=== PATIENT | female | born 1970 | race Caucasian/White ===

== ENCOUNTER 2017-01-10 05:23 | Emergency (ER) | payer BC ==
[2017-01-10 05:28] VITALS: BP 119/80
[2017-01-10] MEDS ORDERED: Lidocaine 1% 20 ML MDV INJECT ONE (05:46)
[2017-01-10] MEDS ORDERED: cefTRIAXone 1 GM Vial IM ONE (05:46)
[2017-01-10] MEDS ORDERED: methylPREDNISolone Sodium Succinate 125 MG/2 ML SDV IM ONE (05:47)
[2017-01-10] MEDS ORDERED: Acetaminophen/HYDROcodone 325-5 MG Tab PO PRN (06:01)
--- NOTE | 2017-01-10 06:08 | EDM.PDOC ---
ED HPI GENERAL MEDICAL PROBLEM - General Chief Complaint: ENT Problem Stated Complaint: tooth abcess Time Seen by Provider: 01/10/17 05:43 Source of Information: Reports: Patient History Limitations: Reports: No Limitations - History of Present Illness INITIAL COMMENTS - FREE TEXT/NARRATIVE: Patient presents to ED with a 4 day history of swelling, redness and pain to her face near her ear. Believes associated with an abscess tooth. She states she has had this happen to her in the past but never this severe. Is having considerable difficulty opening and closing her mouth. Does admit to consuming "a lot of alcohol tonight" to be "brave enough to come to the ER". No fevers. Onset: Gradual Duration: Day(s): Location: Reports: Face Severity: Mild Improves with: Reports: Medication Associated Symptoms: Denies: Fever/Chills Treatments [employer]: Reports: Acetaminophen Left Tooth/Teeth Pain Score (Numeric/FACES): 2 - Related Data Allergies Allergy/AdvReac Type Severity Reaction Status Date / Time No Known Allergies Allergy Verified 01/10/17 05:24 Home Meds: Home Meds . [No Known Home Meds] 01/10/17 [History] Past Medical History HEENT History: Reports: Impaired Vision, Other (See Below) Other HEENT History: tooth abscess Cardiovascular History: Reports: Heart Murmur Gastrointestinal History: Reports: Other (See Below) Other Gastrointestinal History: appendicitis Musculoskeletal History: Reports: Arthritis Neurological History: Reports: Migraines - Past Surgical History HEENT Surgical History: Reports: Adenoidectomy, Myringotomy w Tube(s), Tonsillectomy Neurological Surgical History: Reports: Other (See Below) Other Neurological Surgeries/Procedures: spinal tap Social & Family History - Family History Family Medical History: Noncontributory - Tobacco Use Smoking Status *Q: Current Every Day Smoker Years of Tobacco use: 31 Packs/Tins Daily: 0.5 - Recreational Drug Use Recreational Drug Use: Yes Recreational Drug Type: Reports: Marijuana/Hashish Recreational Drug Use Frequency: Socially ED ROS GENERAL - Review of Systems Review Of Systems: See Below Constitutional: Denies: Fever, Chills HEENT: Reports: Other (tooth pain). Denies: Ear Discharge, Ear Pain, Nose Pain , Throat Pain, Throat Swelling, Vertigo Respiratory: Reports: No Symptoms Cardiovascular: Reports: No Symptoms Endocrine: Reports: No Symptoms GI/Abdominal: Reports: No Symptoms Skin: Reports: Erythema, Lesions Neurological: Reports: No Symptoms ED EXAM, SKIN/RASH Exam: See Below Exam Limited By: Intoxication General Appearance: Alert, WD/WN, No Apparent Distress Ears: Normal External Exam, Normal TMs Nose: Normal Inspection, Normal Mucosa, No Blood Throat/Mouth: Other (molar dental caries) Head: Facial Swelling, Facial Tenderness, Other (Large area of redness and swelling to left preauricular area. ) Neck: Normal Inspection, Supple, Non-Tender Respiratory/Chest: No Respiratory Distress, Lungs Clear, Normal Breath Sounds Cardiovascular: Regular Rate, Rhythm GI/Abdominal: Normal Bowel Sounds, Soft, Non-Tender Neurological: Alert, Oriented Psychiatric: Other (intoxicated) Skin: Erythema Associated features: Warmth, Tenderness, Wwelling ED SKIN PROCEDURES - I&D Skin Prep: Providone-Iodine (Betadine) Local Anesthesia: Lidocaine: 1% Plain Local Anesthetic Volume: 1cc Area Incised With: 11 Blade Drainage: Purulent, Moderate Amount Probed to Break Up Loculations: No Complications: No Progress/Comments: Culture obtained Course - Vital Signs Last Recorded V/S: Last Vital Signs Temp 96.1 F 01/10/17 05:24 Pulse 70 01/10/17 05:24 Resp 16 01/10/17 05:24 BP 119/80 01/10/17 05:24 Pulse Ox 100 01/10/17 05:24 - Orders/Labs/Meds Orders: Active Orders 24 hr Category Date Time Status CULTURE WOUND [RM] Stat Lab 01/10/17 06:00 Received Meds: Medications Discontinued Medications Generic Name Dose Route Start Last Admin Trade Name [place] PRN Reason Stop Dose Admin Hydrocodone Bitart/Acetaminophen 1 - 2 tab 01/10/17 06:01 01/10/17 06:09 [place] 325-5 Mg PO 2 tab Q4H PRN Administration Pain Ceftriaxone Sodium 1 gm 01/10/17 05:46 01/10/17 05:54 Rocephin IM 01/10/17 05:47 1 gm ONETIME ONE Administration Lidocaine HCl 20 ml 01/10/17 05:46 01/10/17 05:54 Xylocaine 1% INJECT 01/10/17 05:47 20 ml ONETIME ONE Administration Methylprednisolone Sodium Succinate 125 mg 01/10/17 05:47 01/10/17 05:54 Solu-Medrol IM 01/10/17 05:48 125 mg NOW ONE Administration Departure - Departure Time of Disposition: 06:06 Disposition: Home, Self-Care 01 Condition: Good Clinical Impression: Facial abscess - Discharge Information Referrals: Sonja Maria PA [Emergency Provider] - Forms: ED Department Discharge Additional Instructions: 1. Warm pack to facial region frequently today 2. [place] for pain as needed 3. Bactrim DS one twice a day for 10 days 4. We will notify you of any culture report if concerns 5. Follow up for any concerns. - My Orders Last 24 Hours: My Active Orders 01/10/17 06:00 CULTURE WOUND [RM] Stat - Assessment/Plan Last 24 Hours: My Active Orders 01/10/17 06:00 CULTURE WOUND [RM] Stat
== END 2017-01-10 06:13 | disposition home or self-care (01) ==
LOC: MERGE 05:23 → CC.ED 05:23
DX: H60.02 Abscess of left external ear (principal); F17.210 Nicotine dependence, cigarettes, uncomplicated; M19.90 Unspecified osteoarthritis, unspecified site; Z98.890 Other specified postprocedural states; Z96.22 Myringotomy tube(s) status
CPT/HCPCS: 69000; 87070; 87077; 87186; 96372; 99282; A9270; J0696; J2930

== ENCOUNTER 2024-05-20 07:14 | Emergency (ER) | payer SELFPAY ==
[2024-05-20 07:32] VITALS: BP 150/85; PULSE 109
[2024-05-20] MEDS: Acetaminophen 500 MG Tab PO ONE (07:32)
[2024-05-20 07:43] LABS: APPEARANCE,URINE CLOUDY (CLEAR); BILIRUBIN,URINE NEGATIVE (NEGATIVE); COLOR,URINE YELLOW (YELLOW); GLUCOSE,URINE NEGATIVE (NEGATIVE); KETONES,URINE TRACE mg/dL (NEGATIVE); LEUKOCYTE ESTERASE,URINE LARGE (NEGATIVE); NITRITE,URINE NEGATIVE (NEGATIVE); OCCULT BLOOD,URINE SMALL (NEGATIVE); PH,URINE 8.5 (4.5-8.0); PROTEIN,URINE 100 mg/dL (NEGATIVE)
[2024-05-20 07:44] LABS: BASOPHILS ABSOLUTE AUTO 0.07 10^3/uL (0.00-0.50); BASOPHILS PERCENT AUTO 0.4 % (0-1); EOSINOPHILS ABSOLUTE AUTO 0.02 10^3/uL (0.00-1.50); EOSINOPHILS PERCENT AUTO 0.1 % (0-6); HEMATOCRIT 28.5 % (37.0-47.0); HEMOGLOBIN 8.4 g/dL (12.0-16.0); IMMATURE GRAN ABSOLUTE AUTO 0.12 10^3/uL (0.00-0.49); IMMATURE GRAN PERCENT AUTO 0.7 % (0.0-4.9); LYMPHOCYTES ABSOLUTE AUTO 0.59 10^3/uL (0.60-5.00); LYMPHOCYTES PERCENT AUTO 3.4 % (24-44); MEAN CORPUSCULAR HEMOGLOBIN 21.6 pg (27.0-32.0); MEAN CORPUSCULAR HGB CONC 29.5 g/dL (32.0-36.0); MEAN CORPUSCULAR VOLUME 73.3 fL (83.0-97.0); MONOCYTES ABSOLUTE AUTO 0.91 10^3/uL (0.00-1.50); MONOCYTES PERCENT AUTO 5.2 % (0-10); NEUTROPHILS ABSOLUTE AUTO 15.75 x10^3/uL (1.80-8.00); NEUTROPHILS PERCENT AUTO 90.2 % (41-71); PLATELET COUNT,PLT 341 10^3/uL (150-400); RED BLOOD CELL COUNT 3.89 x10^6/uL (4.00-5.50); WHITE BLOOD CELL COUNT,WBC 17.5 10^3/uL (4.0-11.0)
[2024-05-20 07:52] LABS: BACTERIA,URINE FEW /HPF (NOT SEEN); EPITHELIAL CELLS,URINE RARE /HPF (NOT SEEN); MUCUS,URINE FEW /HPF (NOT SEEN); WBC,URINE 40-50 /HPF (0-5)
[2024-05-20 07:54] LABS: ALBUMIN 3.3 g/dL (3.4-5.0); BILIRUBIN TOTAL 0.9 mg/dL (0.0-1.0); C-REACTIVE PROTEIN 11.57 mg/dL (<=0.50); CALCIUM 9.2 mg/dL (8.4-10.1); CREATININE 0.8 mg/dL (0.6-1.0); EST CRCL DRUG DOSING (CG) 79.99 mL/min; PROTEIN TOTAL,TP 8.4 g/dL (6.4-8.2)
[2024-05-20] MEDS: Sodium Chloride 0.9% 1,000 ML IV SCH (07:58)
[2024-05-20] MEDS: Ondansetron 4 MG/2 ML SDV IVPUSH STA (07:58)
[2024-05-20] MEDS: Iopamidol 755 Mg/ML 100 ML Bottle IVPUSH ONE (09:21)
[2024-05-20] MEDS: NS + KCl 20mEq/L 1,000 ML IV SCH (09:27)
[2024-05-20] MEDS: cefTRIAXone 2 GM Vial IVPUSH ONE (09:58)
[2024-05-20] MEDS: Potassium Chloride 20 MEQ Tab.ER PO ONE (10:04)
[2024-05-20] MEDS: Take Home: Ondansetron 4 MG Tab.DIS, 2 Tab Pack PO ONE (11:24)
[2024-05-21 22:42] LABS: % TRANSFERRIN SAT 3.9 % (20.0-50.0)
== END 2024-05-20 11:40 | disposition home or self-care (01) ==
LOC: CC.ED 07:14
DX: N12 Tubulo-interstitial nephritis, not specified as acute or chronic (principal); Z79.899 Other long term (current) drug therapy
CPT/HCPCS: 36415; 74177; 80053; 81001; 82728; 83540; 83550; 83605; 85025; 86140; 87040; 87086; 87088; 87186; 96361; 96365; 96366; 96375; 99284; 99284-25; A9270-GY; J0696; J2405; J3480; J7030; Q9967